=== PATIENT | male | born 1960 | race Caucasian/White ===

== ENCOUNTER 2022-04-08 14:10 | Outpatient (CLI) | payer OTHER, SELFPAY ==
--- NOTE | 2022-04-08 14:32 | USCV_ITS ---
Magno Segovia Age: 62 Gender: M : 1960 Exam Date: 04/08/2022 14:42 Ordering Phys: Cat Melchor Technologist: DELLA Exam Location: [facility] [place] Indication: lft leg pain PROCEDURES: Venous duplex imaging was performed in only the left lower extremity. The following venous structures were evaluated: common femoral vein, profunda vein, proximal portion of the greater saphenous vein, superficial femoral vein, and the popliteal vein FINDINGS: Normal 2-D Doppler and augmentation and compressibility throughout the lower extremity venous structures. Additional imaging through the proximal calf veins also reveals no thrombus. GSV thrombophlebitis. CONCLUSIONS No DVT left lower extremity. Left GSV thrombophlebitis extends to the CFV junction. Report called by Vj at time of exam. Dr. Jade Woo DO (Electronically Signed) Final Date: 08 April 2022 15:53 S
== END 2022-04-08 14:11 | disposition home or self-care (01) ==
PROVIDERS: PCP Nurse Practitioner Family; Visit Provider Physician Assistant
DX: M79.662 Pain in left lower leg (principal); I80.02 Phlebitis and thrombophlebitis of superficial vessels of left lower extremity
CPT/HCPCS: 93971

== ENCOUNTER 2024-06-27 12:36 | Emergency (ER) | payer OTHER, SELFPAY ==
[2024-06-27 12:56] VITALS: BP 130/88; PULSE 68; TEMP 36.7; O2SAT 98; BMI 29.2
[2024-06-27 14:00] VITALS: BP 149/96; PULSE 80; O2SAT 100
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
[2024-06-27] MEDS: ondansetron 2 mg/ML SDV 2 mL 4 MG IVP (14:33)
[2024-06-27] MEDS: ketorolac 30 mg/mL INJ 15 MG IVP (14:34)
[2024-06-27 14:35] VITALS: BP 138/83; PULSE 71; O2SAT 98
[2024-06-27] MEDS: orphenadrine 30 mg/mL Inj 2 mL 60 MG IVP (14:35)
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
[2024-06-27] MEDS: tetanus-dipt-pertussis 0.5 mL SDV IM (15:11)
[2024-06-27 15:13] VITALS: RESP 18; O2SAT 98
[2024-06-27] MEDS: HYDROmorphone 1 mg/mL INJ 1 mL 0.5 MG IVP (15:13)
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
[2024-06-27 16:08] VITALS: BP 119/70; PULSE 84; O2SAT 96
[2024-06-27 16:34] VITALS: BP 122/75; PULSE 74; O2SAT 93
== END 2024-06-27 16:38 | disposition home or self-care (01) ==
PROVIDERS: Emergency Provider Emergency Medicine; PCP Nurse Practitioner Family
DX: S32.018A Other fracture of first lumbar vertebra, initial encounter for closed fracture (principal); S32.029A Unspecified fracture of second lumbar vertebra, initial encounter for closed fracture; X58.XXXA Exposure to other specified factors, initial encounter
CPT/HCPCS: 70450; 70496; 70498; 72125; 72131; 90471; 90715; 96374; 96375; 97760; 99285; J1171; J1885; J2360; J2405; L0637; Q9967

== ENCOUNTER 2024-09-21 13:50 | Emergency (ER) | payer OTHER, SELFPAY ==
[2024-09-21] VITALS (9 sets, daily range): BP systolic 117–134; BP diastolic 73–90; PULSE 96–109; RESP 16–18; TEMP 37.1; O2SAT 94–97; BMI 28.5
--- NOTE | 2024-09-21 14:00 | ECG_ITS ---
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
--- NOTE | 2024-09-21 14:18 | XRR_ITS ---
PROCEDURE INFORMATION: Exam: XR Chest Exam date and time: 09/21/2024 2:27 PM Age: 64 years old Clinical indication: Dyspnea; Additional info: Dizziness TECHNIQUE: Imaging protocol: Radiologic exam of the chest. Views: 1 view. COMPARISON: CT angio headneck* [id number] 06/27/2024 2:50 PM FINDINGS: Lungs: Unremarkable. No consolidation. Pleural spaces: Unremarkable. No pleural effusion. No pneumothorax. Heart/Mediastinum: Unremarkable. No cardiomegaly. Bones/joints: Moderate degenerative disease of bilateral acromioclavicular joints. There are mild degenerative changes of the glenohumeral joint. XR/XR chest 1V portable [id number] IMPRESSION: No acute cardiopulmonary process.
--- NOTE | 2024-09-21 14:18 | CTR_ITS ---
PROCEDURE INFORMATION: Exam: CT Head Without Contrast Exam date and time: 09/21/2024 2:24 PM Age: 64 years old Clinical indication: Dizziness and malaise or fatigue; Additional info: Dizziness, generalized weakness TECHNIQUE: Imaging protocol: Computed tomography of the head without contrast. Radiation optimization: All CT scans at this facility use at least one of these dose optimization techniques: automated exposure control; mA and/or kV adjustment per patient size (includes targeted exams where dose is matched to clinical indication); or iterative reconstruction. COMPARISON: CT angio headneck* [id number] 06/27/2024 2:50 PM RADIATION DOSE METRICS: Total DLP (mGy-cm): 1075.78 FINDINGS: Brain: Age related diffuse parenchymal volume loss. No hemorrhage. Unremarkable white matter. No mass effect. Cerebral ventricles: No ventriculomegaly. Paranasal sinuses: Visualized sinuses are unremarkable. No fluid levels. Mastoid air cells: Visualized mastoid air cells are well aerated. Bones: Unremarkable. No acute fracture. Soft tissues: Unremarkable. CT/CT head wo con* [id number] IMPRESSION: No large territorial infarct or intracranial bleed.
--- NOTE | 2024-09-21 14:22 | W.ED.WEAKNES ---
HPI - Weakness General: Chief complaint: Weakness Stated complaint: high bp Time Seen by Provider: 09/21/24 14:01 History of Present Illness: Magno Segovia is a 64-year-old man that presents to the emergency department with lightheadedness, hypertension, tachycardia and generalized weakness that started today while cleaning up debris from the last night's were negative. Patient states he felt thirsty and went to rest. Lightheadedness did improve some while at rest. No definite chest pain but possible chest tightness during activity. Patient denies any cardiac history, respiratory history, stroke history. He denies chronic hypertension Denies history of arrhythmia. Denies anticoagulation/antiplatelet therapy Associated symptoms: Denies chest pain, chills, confusion, dysuria, easy bruising, fever(s), headache(s), nausea or vomiting Review of Systems General: Reports: 10 or more systems reviewed and unremarkable except in HPI and below Narrative: Hypertension, tachycardia Const: Denies: fever(s), chills, change in appetite, change in weight, fatigue or malaise Card: Reports: lightheadedness; Denies: chest pain, palpitations, irregular heart rhythm, edema, dyspnea on exertion, orthopnea or leg pain with exertion Resp: Denies: dyspnea, productive cough, non-productive cough, wheezing, stridor or chest congestion GI: Denies: abdominal pain, nausea, vomiting, dysphagia, diarrhea, constipation, bloating, GI cramping or hematochezia : Denies: flank pain, dysuria, urinary frequency, urinary urgency, urinary hesitancy, oliguria or hematuria Musc: Denies: neck pain, back pain, extremity pain, joint pain, joint swelling, joint redness, joint warmth or muscle weakness Skin/Breast: Denies: rash, pruritus, erythema, photosensitivity or new lesions Neuro: Denies: headache(s), numbness in extremities, weakness in extremities, sensory changes, lack of coordination, difficulty walking, frequent falls, dizziness, confusion, Slurred speech present, difficulty communicating thoughts, seizure-like activity or involuntary movements Endo: Denies: polyuria, polydipsia or tired all the time Ned/Lymph: Denies: easy bruising or easy bleeding Physical Exam Const: COMMON NORMALS: no acute distress, patient oriented x3 and alert GENERAL APPEARANCE: cooperative ORIENTATION/CONSCIOUSNESS: Yes awake, Yes oriented to person, Yes oriented to place and Yes oriented to time HENMT: COMMON NORMALS: normocephalic and atraumatic HEAD & SCALP: normocephalic and atraumatic FACE & SINUS: normal facial exam MOUTH: Normal oral and palatal mucosa present THROAT: posterior oropharynx normal Eye: COMMON NORMALS: Equal, round and reactive pupils present, EOMs intact bilaterally, conjunctivae normal and no scleral icterus GENERAL EYE: appearance normal, both eyes and all related structures ALIGNMENT: Yes alignment normal PERIORBITAL: periorbital findings normal CONJUNCTIVA: Yes conjunctivae normal PUPIL: Yes Equal, round and reactive pupils present Neck/C-Spine: COMMON NORMALS: full ROM GENERAL: Yes normal visual inspection Lymph: LYMPHATIC: no lymphadenopathy noted Chest: COMMONS NORMALS: normal inspection of the chest Breast/axilla inspection: Yes no chest deformity, asymmetry, normal contours, no nodules, masses, tenderness Resp: COMMON NORMALS: normal respiratory effort, No retractions, No use of accessory muscles and clear to auscultation bilaterally EFFORT & INSPECTION: Yes able to speak in complete sentences and Yes symmetric chest movement AUSCULTATION: clear to auscultation bilaterally Cardio: COMMON NORMALS: regular rhythm and Peripheral pulses 2+ throughout RATE: tachycardic RHYTHM: regular rhythm PERIPHERAL PULSES: Peripheral pulses 2+ throughout GI: COMMON NORMALS: Normal to inspection, nondistended, normoactive bowel sounds present, Soft to palpation, non-tender and No hepatosplenomegaly present INSPECTION: Yes normal to inspection AUSCULTATION: Yes normoactive bowel sounds PALPATION: Yes Soft to palpation and Yes No hepatosplenomegaly present RECTAL EXAM: Yes deferred Extremity: COMMON NORMALS: normal to inspection GENERAL: Yes normal exam except as noted Neuro: COMMON NORMALS: patient oriented x3 SENSORIUM/ORIENTATION: Yes alert, Yes oriented to person, Yes oriented to place and Yes oriented to time CRANIAL NERVES: Yes CN normal except as noted Psych: COMMON NORMALS: mental status grossly normal, Normal thought process present, cooperative, activity/motor behavior normal, denies homicidal ideation and denies suicidal ideation THOUGHT PROCESS: Normal thought process present Skin: COMMON NORMALS: no rashes or lesions noted, no wounds and turgor normal GENERAL SKIN EXAM: no rashes or lesions noted and turgor normal Course Vital Signs: Vital signs: Vital Signs Temperature 98.7 F 09/21/24 13:53 Pulse Rate 101 H 09/21/24 17:00 Respiratory Rate 18 09/21/24 14:43 Blood Pressure 129/85 09/21/24 17:00 Pulse Oximetry 94 09/21/24 17:00 Oxygen Delivery Me thod Room Air 09/21/24 17:00 MDM - Weakness Medical Decision Making Patient evaluated in the emergency department today for tachycardia, hypertension, lightheadedness and shortness of breath. Differential diagnosis include pulmonary, cardiac, neurological. Patient underwent laboratory evaluation as well as chest x-ray and EKGs. Initial EKG was 1403. It revealed sinus tachycardia with a rate of 110. QTc of 382. No ectopy, ST elevation or abnormal T wave inversion. Follow-up EKG at 1620 reveals sinus tachycardia rate 105 bpm. This was immediately after an episode of nausea and vomiting. Patient received a liter of fluid followed by a second liter when he vomited mid evaluation. He reports he is feeling better. His laboratory studies reveal no leukocytosis or anemias. No thrombocytopenia He has no significant electrolyte abnormalities. Normal renal and liver function. He had a troponin that was 20 initially followed with a 2-hour delta -1.24. I did obtain a TSH which was mildly elevated. As result he got a T3 and T4 which were normal. I reviewed the case with Dr. Baez. It is possible that the elevated TSH is a stress related response. As the troponin may well be. he denied any chest pain but did have nausea. This was treated with Zofran. Upon reevaluation after all the results came back, patient related remote history of prior DVT and Eliquis use. Since he remained tachycardic and has a history of VTE I did do a CTA chest. Both the chest x-ray and CTA chest were unremarkable. Patient is feeling better and so I am going to send him home but I have asked that the major case detective assist in setting up a Holter monitor. Heart score of 3 which is low score for risk of M RONALD?0.9-1.7% He will go home with Zofran. I am going to have him follow-up with his primary care doctor on Monday for reevaluation. I have advised them that if he gets worse or if he feels that he needs to be reevaluated, they need to return promptly to the emergency department for further evaluation. They are in agreement and all questions were answered Lab Data 09/21/24 14:21 09/21/24 14:21 Radiology Impressions Chest X-Ray 09/21/24 14:18 IMPRESSION: No acute cardiopulmonary process. Head CT 09/21/24 14:18 IMPRESSION: No large territorial infarct or intracranial bleed. Chest CTA 09/21/24 15:53 IMPRESSION: 1. No pulmonary embolism. 2. No acute infiltrates. Laboratory Results WBC 10.95 10^3/uL (3.29-11.43) 09/21/24 14:21 RBC 4.50 10^6/uL (3.85-5.65) 09/21/24 14:21 Hgb 14.00 g/dL (11.27-16.99) 09/21/24 14:21 Hct 42.1 % (37-53) 09/21/24 14:21 MCV 93.6 fl (82-101) 09/21/24 14:21 MCH 31.1 pg (27-33) 09/21/24 14:21 MCHC 33.3 g/dL (30-55) 09/21/24 14:21 RDW 12.9 % (12.1-15.1) 09/21/24 14:21 Plt Count 244 10^3/cmm (157-399) 09/21/24 14:21 MPV 8.7 fL (7.4-10.4) 09/21/24 14:21 Neut % (Auto) 91.6 % 09/21/24 14:21 Lymph % (Auto) 3.8 % 09/21/24 14:21 Ogle % (Auto) 3.7 % 09/21/24 14:21 Eos % (Auto) 0.4 % 09/21/24 14:21 Baso % (Auto) 0.2 % 09/21/24 14:21 Neut # (Auto) 10.04 10^3/uL (1.8-7.7) H 09/21/24 14:21 Lymph # (Auto) 0.4 10^3/uL (0.8-4.8) L 09/21/24 14:21 Ogle # (Auto) 0.4 10^3/uL (0.2-0.9) 09/21/24 14:21 Eos # (Auto) 0.0 10^3/uL (0.0-0.8) 09/21/24 14:21 Baso # (Auto) 0.0 10^3/uL (0.0-0.1) 09/21/24 14:21 Nucleated RBC % (auto) 0 % 09/21/24 14:21 Nucleated RBCs # 0.0 /100WBC 09/21/24 14:21 Sodium 138 mmol/L (136-145) 09/21/24 14:21 Potassium 4.2 mmol/L (3.5-5.1) 09/21/24 14:21 Chloride 102 mmol/L (98-107) 09/21/24 14:21 Carbon Dioxide 25 mmol/L (22-29) 09/21/24 14:21 Anion Gap 15.2 (5-19) 09/21/24 14:21 BUN 17 mg/dL (8-23) 09/21/24 14:21 Creatinine 1.1 mg/dL (0.7-1.2) 09/21/24 14:21 GFR Calculation 67.4 mL/min (90-130) L 09/21/24 14:21 Glucose 114 mg/dL (65-115) 09/21/24 14:21 Calculated Osmolality 288 mOsm/kg (285-295) 09/21/24 14:21 Calcium 9.4 mg/dL (8.5-10.5) 09/21/24 14:21 Total Bilirubin 0.8 mg/dL (0.15-1.2) 09/21/24 14:21 AST 43 U/L (0-40) H 09/21/24 14:21 ALT 41 U/L (0-41) 09/21/24 14:21 Alkaline Phosphatase 121 U/L (40-130) 09/21/24 14:21 Troponin T Baseline 20 ng/L (0-15) H 09/21/24 14:21 Troponin T 120 Minute 18.76 ng/L (0-15) H 09/21/24 16:06 Delta Troponin T -1.24 ABS# (0-10) L 09/21/24 16:06 Total Protein 7.4 g/dL (6.6-8.7) 09/21/24 14:21 Albumin 4.8 g/dL (3.5-5.2) 09/21/24 14:21 Globulin 2.6 g/dL (1.3-4.6) 09/21/24 14:21 TSH 5.91 uIU/mL (0.27-4.20) H 09/21/24 14:21 Free T4 1.01 ng/dL (0.82-1.77) 09/21/24 14:21 Free T3 2.6 PG/ML (2.0-4.4) 09/21/24 14:21 Urine Color Dark yellow (Yellow) A 09/21/24 15:20 Urine Appearance Clear (CLEAR) 09/21/24 15:20 Urine pH 6.5 (5-7) 09/21/24 15:20 Ur Specific [place] 1.025 (1.005-1.030) 09/21/24 15:20 Urine Protein Negative (Negative) 09/21/24 15:20 Urine Glucose (UA) Negative (Normal) 09/21/24 15:20 Urine Ketones Trace (Negative) 09/21/24 15:20 Urine Blood Negative (Negative) 09/21/24 15:20 Urine Nitrate Negative (Negative) 09/21/24 15:20 Urine Bilirubin Negative (Negative) 09/21/24 15:20 Urine Urobilinogen 1.0 mg/dL (Negative) 09/21/24 15:20 Ur Leukocyte Esterase Trace (Negative) A 09/21/24 15:20 Urine RBC 0-2 /hpf (0-2) 09/21/24 15:20 Urine WBC 0-5 /hpf (0-5) 09/21/24 15:20 Ur Squamous Epith Cells 0-5 /hpf (0-5) 09/21/24 15:20 Amorphous Sediment Not Reportable 09/21/24 15:20 Urine Bacteria None seen /hpf (NONE) 09/21/24 15:20 Hyaline Casts 0.40 /lpf 09/21/24 15:20 All radiology interpretation(s) finalized by discharge Discharge Plan Discharge Patient Disposition: Home Clinical Impression: Tachycardia, Dehydration, Elevated TSH, Elevated troponin Condition: Stable Prescriptions: New ondansetron 4 mg tablet,disintegrating 4 mg PO TID 5 Days Qty: 15 0RF No Action sulfasalazine 500 mg tablet 1,000 mg PO BID fexofenadine [Alessia] 60 mg Tablet 60 mg PO BID PRN (Reason: allergies) levothyroxine 100 mcg tablet 100 mcg PO DAILY tamsulosin 0.4 mg capsule 0.4 mg PO DAILY minocycline 75 mg capsule 75 mg PO DAILY ibuprofen [Advil] 200 mg Tablet 200 mg PO Q6H PRN (Reason: Pain) clindamycin phosphate 1 % solution See Rx Instructions .ROUTE .COMPLEX Rx Instructions: APPLY TWICE DAILY TO BUMPS ON POSTERIOR NECK, THEY ARISE, UNTIL RESOLVED. THEN NEEDED. Discharge Orders: Discharge ED (Routine); Ordered 09/21/24 Ordered By: Dinah Mayo Referrals: Sharon Jones FNP [Primary Care Provider] - Patient Instructions: Dehydration (ED), Atrial Tachycardia (DC), Pain Management Activity Restrictions/Additional Instructions: Please monitor symptoms closely. Please use the Zofran as needed for nausea If you do not feel you are getting better or you feel that you are getting worse, please return to the emergency department for further evaluation. Call your doctor Monday. I would like you to be reevaluated this week Print Language: Georgian Coding Level of Care Code ED Information Assurance Specialist for Chg Fwd Related Data Home Medications ?Medication ?Instructions ?Recorded ?Confirmed clindamycin phosphate 1 % topical See Rx Instructions .Route .COMPLEX 06/27/24 09/21/24 solution fexofenadine 60 mg tablet 60 mg PO BID PRN allergies 06/27/24 09/21/24 ibuprofen 200 mg tablet (Advil) 200 mg PO Q6H PRN Pain 06/27/24 09/21/24 levothyroxine 100 mcg tablet 100 mcg PO DAILY 06/27/24 09/21/24 minocycline 75 mg capsule 75 mg PO DAILY 06/27/24 09/21/24 sulfasalazine 500 mg tablet 1,000 mg PO BID 06/27/24 09/21/24 tamsulosin 0.4 mg capsule 0.4 mg PO DAILY 06/27/24 09/21/24 Previous Rx's ?Medication ?Instructions ?Recorded ondansetron 4 mg disintegrating 4 mg PO TID 5 days #15 tabs 09/21/24 tablet Allergies Allergy/AdvReac Type Severity Reaction Status Date / Time Penicillins Allergy ALGY-Rash Verified 09/21/24 14:00
[2024-09-21 14:31] LABS: Basophils % 0.2 %; Eosinophils % 0.4 %; Hematocrit 42.1 % (37-53); Lymphocytes # 0.4 10^3/uL (0.8-4.8); Lymphocytes % 3.8 %; Mean Corpuscular HGB Conc 33.3 g/dL (30-55); Mean Corpuscular Hemoglobin 31.1 pg (27-33); Mean Corpuscular Volume 93.6 fl (82-101); Mean Platelet Volume 8.7 fL (7.4-10.4); Monocytes # 0.4 10^3/uL (0.2-0.9); Monocytes % 3.7 %; Neutrophils # 10.04 10^3/uL (1.8-7.7); Neutrophils % 91.6 %; Nucleated Red Blood Cells % 0 %; Platelet Count 244 10^3/cmm (157-399); Red Cell Distribution Width 12.9 % (12.1-15.1); White Blood Count 10.95 10^3/uL (3.29-11.43)
[2024-09-21] MEDS: sodium chloride 0.9% 1,000 ML 999 ML IV ×2 (14:37→17:01)
[2024-09-21 14:48] LABS: Troponin(5th) Baseline 20 ng/L (0-15)
[2024-09-21 14:57] LABS: Alanine Aminotransferase 41 U/L (0-41); Albumin Level 4.8 g/dL (3.5-5.2); Alkaline Phosphatase 121 U/L (40-130); Anion Gap 15.2 (5-19); Aspartate Amino Transferase 43 U/L (0-40); Blood Urea Nitrogen 17 mg/dL (8-23); Calcium 9.4 mg/dL (8.5-10.5); Carbon Dioxide 25 mmol/L (22-29); Chloride 102 mmol/L (98-107); Creatinine Clr Calc Pharmacy 79.0461; Globulin 2.6 g/dL (1.3-4.6); Glomerular Filtration Rate 67.4 mL/min (90-130); Glucose 114 mg/dL (65-115); Osmolality Calculated 288 mOsm/kg (285-295); Potassium 4.2 mmol/L (3.5-5.1); Sodium 138 mmol/L (136-145); Thyroid Stimulating Hormone 5.91 uIU/mL (0.27-4.20); Total Bilirubin 0.8 mg/dL (0.15-1.2); Total Protein 7.4 g/dL (6.6-8.7)
[2024-09-21 15:29] LABS: Bilirubin Urine Negative (Negative); Blood Urine Negative (Negative); Glucose Urine UA Negative (Normal); Ketones Urine Trace (Negative); Leukocyte Esterase Urine Trace (Negative); Nitrate Urine Negative (Negative); Protein Urine Negative (Negative); Specific Gravity, Urine 1.025 (1.005-1.030); Urine Appearance Clear (CLEAR); Urine Color Dark Yellow (Yellow); pH Urine 6.5 (5-7)
[2024-09-21 15:29] LABS: Free T4 Free Thyroxine 1.01 ng/dL (0.82-1.77); T3 Free 2.6 PG/ML (2.0-4.4)
[2024-09-21 15:31] LABS: Add Urine Microscopic? YES; Bacteria Urine None Seen /hpf; RBC Urine 0-2 /hpf (0-2); Squamous Epithelial Cell Urine 0-5 /hpf (0-5); WBC Urine 0-5 /hpf (0-5)
--- NOTE | 2024-09-21 15:53 | CTR_ITS ---
PROCEDURE INFORMATION: Exam: CTA Chest With Contrast Exam date and time: 09/21/2024 4:35 PM Age: 64 years old Clinical indication: Shortness of breath; Additional info: R/O pe; HX of dvt 04/01 TECHNIQUE: Imaging protocol: Computed tomographic angiography of the chest with contrast. Exam focused on the arteries. 3D rendering (Not supervised by radiologist): MIP and/or 3D reconstructed images were created by the technologist. Radiation optimization: All CT scans at this facility use at least one of these dose optimization techniques: automated exposure control; mA and/or kV adjustment per patient size (includes targeted exams where dose is matched to clinical indication); or iterative reconstruction. Contrast material: OMNIPAQUE 350; Contrast volume: 80 ml; Contrast route: INTRAVENOUS (IV); COMPARISON: CR (CHEST, ) 09/21/2024 2:27 PM RADIATION DOSE METRICS: Total DLP (mGy-cm): 401.97 FINDINGS: Pulmonary arteries: Normal. No pulmonary emboli. Aorta: Unremarkable. No aortic aneurysm. No aortic dissection. Lungs: Bilateral lower lobe atelectasis. There is no evidence of focal pulmonary consolidation. Pleural spaces: Unremarkable. No pneumothorax. No pleural effusion. Heart: Unremarkable. No cardiomegaly. No pericardial effusion. Coronary arteries: There is no evidence of atherosclerotic coronary artery calcifications. Lymph nodes: Calcified right hilar lymph nodes. Calcified mediastinal lymph nodes. Bones/joints: Mild curvature of the thoracic spine convex to the right. There are mild degenerative changes of the glenohumeral joint. Mild degenerative disease of the right acromioclavicular joint. Soft tissues: Unremarkable. CT/CT angio chest PE protcl [id number] IMPRESSION: 1. No pulmonary embolism. 2. No acute infiltrates.
--- NOTE | 2024-09-21 16:19 | ECG_ITS ---
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
[2024-09-21] MEDS: ondansetron 2 mg/ML SDV 2 mL 4 MG IVP (16:25)
[2024-09-21] MEDS: acetaminophen 325 mg Tablet 975 MG PO (16:26)
[2024-09-21] MEDS: iohexol 350 mg/mL 500 mL Btl (per mL) IV (16:41)
[2024-09-21 16:45] LABS: Troponin 5 2HR 18.76 ng/L (0-15)
[2024-09-21 16:46] LABS: Troponin 5 2HR Delta -1.24 ABS# (0-10)
--- NOTE | 2024-09-23 07:31 | DCPLANNER ---
messaged heart care for er f/u
== END 2024-09-21 18:34 | disposition home or self-care (01) ==
PROVIDERS: Emergency Provider Nurse Practitioner; PCP Nurse Practitioner Family
DX: R00.0 Tachycardia, unspecified (principal); E86.0 Dehydration; R94.6 Abnormal results of thyroid function studies; R79.89 Other specified abnormal findings of blood chemistry; I10 Essential (primary) hypertension
CPT/HCPCS: 70450; 71045; 71275; 80053; 81001; 84439; 84443; 84481; 84484; 85025; 93005; 96361; 96374; 99285; J2405; J7030; J9999